=== PATIENT | female | born 1980 | race Caucasian/White ===

== ENCOUNTER 2021-12-09 21:48 | Emergency (ER) | payer BC, MEDICAID ==
[~2021-12-09] VITALS: Ht 162.6 cm; Wt 82.0 kg
[~2021-12-09 21:48] MED LIST: insulin
[2021-12-09] MEDS ORDERED: ONDANSETRON HCL 4MG/2ML INJ IV STA (22:19)
[2021-12-09] MEDS ORDERED: SODIUM CHLORIDE 0.9% 1,000 ML IV ONE (22:30)
[2021-12-10 01:54] LABS: BASOPHILS % 0.5 % (0.0-2.0); EOSINOPHILS % 0.2 % (0.0-5.0); HEMATOCRIT. 27.3 % (36.0-48.0); HEMOGLOBIN. 8.6 g/dL (12.0-16.0); LYMPHOCYTES % 40.5 % (20.0-50.0); MEAN CORPUSCULAR HEMOGLOBIN 25.4 pg (28.0-32.0); MEAN CORPUSCULAR VOLUME 81.2 fL (81.0-99.0); MEAN PLATELET VOLUME 7.2 fl (7.4-10.4); MONOCYTES % 7.9 % (2.0-8.0); NEUTROPHILS % 50.9 % (40.0-76.0); PLATELET 340 x1000/uL (130-400); RED BLOOD CELL COUNT 3.36 mill/uL (4.2-5.4); RED CELL DISTRIBUTION WIDTH 25.8 % (11.6-14.6)
[2021-12-10 02:01] LABS: CHLORIDE 110 mEq/L (98-107)
[2021-12-10 02:02] LABS: HCG SCREEN NEGATIVE
[2021-12-10 02:10] LABS: ETHANOL BLOOD 173 mg/dL
[2021-12-10] MEDS ORDERED: ONDANSETRON HCL 4MG/2ML INJ IV NR (02:15)
[2021-12-10 04:00] LABS: *BARBITURATES SCREEN URINE NEGATIVE (NEGATIVE); *BENZODIAZEPINES SCREEN URINE NEGATIVE (NEGATIVE); *COCAINE SCREEN URINE NEGATIVE (NEGATIVE); METHADONE URINE SCREEN NEGATIVE (NEGATIVE); OPIATES URINE SCREEN NEGATIVE (NEGATIVE); PHENCYCLIDINE URINE SCREEN NEGATIVE (NEGATIVE)
[2021-12-10 04:10] LABS: *AMPHETAMINES SCREEN URINE PRESUMTIVE POSITIVE (NEGATIVE); CANNABINOID URINE SCREEN PRESUMTIVE POSITIVE (NEGATIVE)
[2021-12-10 04:53] LABS: PLATELET ESTIMATE NORMAL
[2021-12-10 05:00] VITALS: BP 125/82
[2021-12-10] MEDS ORDERED: ONDA4TAB50 MT (05:04)
== END 2021-12-10 05:21 | disposition home or self-care (01) ==
LOC: ER 21:48
DX: R53.1 Weakness (principal); R11.2 Nausea with vomiting, unspecified; T51.0X1A Toxic effect of ethanol, accidental (unintentional), initial encounter; Y92.89 Other specified places as the place of occurrence of the external cause; E11.9 Type 2 diabetes mellitus without complications; F17.290 Nicotine dependence, other tobacco product, uncomplicated
CPT/HCPCS: 36415; 71045; 80053; 80305; 80320; 83605; 84703; 85025; 96361; 96374; 99284; J2405; J7030; G0480

== ENCOUNTER 2022-03-16 09:17 | Inpatient (IN) | payer MEDICAID ==
[~2022-03-16] VITALS: Ht 162.6 cm; Wt 95.3 kg
[~2022-03-16 09:17] MED LIST changes: +ONDA4TAB50 MT
[2022-03-16 10:42] LABS: CLARITY URINE TURBID (CLEAR); COLOR URINE DARK YELLOW (YELLOW); KETONES URINE TRACE (NEGATIVE); LEUKOCYTE ESTERASE URINE 1+ (NEGATIVE); NITRITE URINE NEGATIVE (NEGATIVE); OCCULT BLOOD URINE NEGATIVE (NEGATIVE); PH URINE 5.5 (4.5-8.0); PROTEIN URINE 2+ (NEGATIVE); SPECIFIC GRAVITY URINE 1.029 (1.005-1.030); UCG SCREEN NEGATIVE
[2022-03-16 11:10] LABS: INR 1.1; PROTHROMBIN TIME 11.8 sec (9.6-11.0)
[2022-03-16 11:24] LABS: BASOPHILS % 1.4 % (0.0-2.0); EOSINOPHILS % 0.6 % (0.0-5.0); HEMATOCRIT. 31.5 % (36.0-48.0); HEMOGLOBIN. 10.2 g/dL (12.0-16.0); LYMPHOCYTES % 19.6 % (20.0-50.0); MEAN CORPUSCULAR HEMOGLOBIN 30.1 pg (28.0-32.0); MEAN PLATELET VOLUME 7.6 fl (7.4-10.4); MONOCYTES % 6.9 % (2.0-8.0); NEUTROPHILS % 71.5 % (40.0-76.0); PLATELET 570 x1000/uL (130-400); RED BLOOD CELL COUNT 3.39 mill/uL (4.2-5.4); RED CELL DISTRIBUTION WIDTH 16.3 % (11.6-14.6)
[2022-03-16] MEDS: MORPHINE SULFATE 2 MG/ML CPJ (NOT FOR IM USE) IV PRN ×2 (13:35→20:28)
[2022-03-16] MEDS ORDERED: NITROGLYCERIN 0.4MG TABLET SL SL PRN (14:45)
[2022-03-16] MEDS ORDERED: MAGNESIUM/ALUMINUM HYDROXIDE/SIMETHICONE 30ML UDC PO PRN (14:45)
[2022-03-16] MEDS ORDERED: ACETAMINOPHEN 325MG TABLET PO PRN ×2 (14:45)
[2022-03-16] MEDS ORDERED: ONDANSETRON HCL 4MG/2ML INJ IV PRN (14:45)
[2022-03-16] MEDS ORDERED: IPRATROPIUM/ALBUTEROL 0.5-3(2.5)MG/3ML NEB NEB PRN (14:45)
[2022-03-16] MEDS ORDERED: ZOLPIDEM TARTRATE 5MG TABLET PO PRN (14:45)
[2022-03-16] MEDS ORDERED: DOCUSATE SODIUM 100MG CAPSULE PO PRN (14:45)
[2022-03-16] MEDS ORDERED: CLONIDINE 0.1MG TABLET PO PRN (14:45)
[2022-03-16] MEDS ORDERED: GUAIFENESIN 200MG/10ML SUGAR FREE UDC PO PRN (14:45)
[2022-03-16] MEDS ORDERED: ENOXAPARIN 40MG/0.4ML SYR SUBCUT NR (16:00)
[2022-03-16] MEDS: FUROSEMIDE 40MG/4ML VIAL IVP SCH (19:12)
[2022-03-16 20:37] LABS: CHLORIDE 107 mEq/L (98-107)
[2022-03-16] MEDS: FAMOTIDINE 20MG TABLET PO SCH (21:10)
[2022-03-16] MEDS: SPIRONOLACTONE 25MG TABLET PO SCH (21:10)
[2022-03-16 22:50] LABS: ETHANOL BLOOD < 10 mg/dL; TOTAL IRON BINDING CAPACITY 125 ug/dL (250-450)
[2022-03-17] MEDS: KETOROLAC 15MG/ML VIAL IV PRN ×2 (00:53→08:54)
[2022-03-17 06:08] VITALS: BP 114/81
[2022-03-17 06:10] VITALS: BP 114/81
[2022-03-17 08:00] VITALS: BP 125/86
[2022-03-17] MEDS: FUROSEMIDE 40MG/4ML VIAL IVP SCH ×2 (08:54→17:15)
[2022-03-17 09:01] VITALS: BP 125/86
[2022-03-17 09:41] LABS: BASOPHILS % 1.2 % (0.0-2.0); EOSINOPHILS % 2.2 % (0.0-5.0); HEMATOCRIT. 24.7 % (36.0-48.0); HEMOGLOBIN. 8.1 g/dL (12.0-16.0); LYMPHOCYTES % 20.9 % (20.0-50.0); MEAN CORPUSCULAR HEMOGLOBIN 30.1 pg (28.0-32.0); MEAN CORPUSCULAR VOLUME 91.4 fL (81.0-99.0); MEAN PLATELET VOLUME 7.2 fl (7.4-10.4); MONOCYTES % 10.5 % (2.0-8.0); NEUTROPHILS % 65.2 % (40.0-76.0); PLATELET 415 x1000/uL (130-400); RED CELL DISTRIBUTION WIDTH 15.9 % (11.6-14.6)
[2022-03-17] MEDS: FOLIC ACID/VITAMIN B COMP W-C TABLET PO SCH (10:00)
[2022-03-17] MEDS: SPIRONOLACTONE 25MG TABLET PO SCH ×2 (10:00→21:00)
[2022-03-17] MEDS: FAMOTIDINE 20MG TABLET PO SCH ×2 (10:00→21:00)
[2022-03-17] MEDS: ENOXAPARIN 30MG/0.3ML SYR SUBCUT SCH ×2 (10:01→21:00)
[2022-03-17 16:00] VITALS: BP 150/85
[2022-03-17 18:15] LABS: CREATINE KINASE 60 IU/L (26-192); CREATINE KINASE MB FRACTION 2.1 ng/mL (0.5-3.6)
[2022-03-17] MEDS ORDERED: FOLIC ACID 1 MG in SODIUM CHLORIDE 0.9% 500 ML IV NR (18:30)
[2022-03-17] MEDS ORDERED: METOLAZONE 10MG TABLET PO NR (18:30)
[2022-03-17] MEDS: MORPHINE SULFATE 2 MG/ML CPJ (NOT FOR IM USE) IV PRN (19:45)
[2022-03-17 20:00] VITALS: BP 141/92
[2022-03-17 20:19] LABS: CHLORIDE 106 mEq/L (98-107)
[2022-03-17 20:31] LABS: PHOSPHORUS 3.4 mg/dL (2.5-4.9)
[2022-03-17 22:23] LABS: *BARBITURATES SCREEN URINE NEGATIVE (NEGATIVE); *BENZODIAZEPINES SCREEN URINE NEGATIVE (NEGATIVE); *COCAINE SCREEN URINE NEGATIVE (NEGATIVE); METHADONE URINE SCREEN NEGATIVE (NEGATIVE); OPIATES URINE SCREEN NEGATIVE (NEGATIVE); PHENCYCLIDINE URINE SCREEN NEGATIVE (NEGATIVE)
[2022-03-17 22:33] LABS: *AMPHETAMINES SCREEN URINE PRESUMTIVE POSITIVE (NEGATIVE); CANNABINOID URINE SCREEN PRESUMTIVE POSITIVE (NEGATIVE)
[2022-03-18] VITALS (7 sets, daily range): BP systolic 117–149; BP diastolic 78–97
[2022-03-18] MEDS ORDERED: FOLIC ACID 1MG TABLET PO SCH (09:00)
[2022-03-18] MEDS: FUROSEMIDE 40MG/4ML VIAL IVP SCH (10:05)
[2022-03-18] MEDS: ENOXAPARIN 30MG/0.3ML SYR SUBCUT SCH (10:06)
[2022-03-18] MEDS: FAMOTIDINE 20MG TABLET PO SCH (10:07)
[2022-03-18] MEDS: KETOROLAC 15MG/ML VIAL IV PRN (10:09)
[2022-03-18] MEDS: FOLIC ACID/VITAMIN B COMP W-C TABLET PO SCH (10:14)
[2022-03-18] MEDS: SPIRONOLACTONE 25MG TABLET PO SCH (10:14)
[2022-03-18] MEDS ORDERED: ALD50 MT (10:33)
[2022-03-18] MEDS ORDERED: FURO-151 MT (10:33)
== END 2022-03-18 14:20 | disposition home or self-care (01) | DRG 463 ==
LOC: ER 09:17 → MICUSO 12:44 → EDBEDREQTM 12:51 → EDBEDREQ 12:51 → 7EST 03-17 05:56
PROVIDERS: ADMIT Internal Medicine; ATTEND Internal Medicine
DX: N39.0 Urinary tract infection, site not specified (principal); E43 Unspecified severe protein-calorie malnutrition; R18.8 Other ascites; I50.30 Unspecified diastolic (congestive) heart failure; E11.22 Type 2 diabetes mellitus with diabetic chronic kidney disease; D64.9 Anemia, unspecified; B96.20 Unspecified Escherichia coli [E. coli] as the cause of diseases classified elsewhere; F12.90 Cannabis use, unspecified, uncomplicated; F14.90 Cocaine use, unspecified, uncomplicated; N18.9 Chronic kidney disease, unspecified; Z20.822 Contact with and (suspected) exposure to COVID-19; F17.210 Nicotine dependence, cigarettes, uncomplicated; F15.90 Other stimulant use, unspecified, uncomplicated; F19.10 Other psychoactive substance abuse, uncomplicated; Z68.36 Body mass index [BMI] 36.0-36.9, adult; Z98.84 Bariatric surgery status; K76.9 Liver disease, unspecified
CPT/HCPCS: 36415; 74176; 80053; 80305; 80320; 81003; 81025; 82550; 82553; 82607; 82746; 83036; 83540; 83550; 83735; 83880; 84100; 84439; 84443; 84484; 85025; 87077; 87186; 87426; 93005; 93306; 93970; 97162; 97166; 99285; C9803; J1650; J1885; J1940; J2270; J3490; J7040; G0480